=== PATIENT | male | born 1955 | race Two or more races ===

== ENCOUNTER 2023-12-11 02:28 | Emergency (ER) | payer OTHER ==
[~2023-12-11] VITALS: Ht 170.2 cm; Wt 104.5 kg
[2023-12-11 03:15] LABS: Basophils # (auto) 0.2 10 ^3/uL (0-0.2); Basophils % (auto) 1.4 % (0.0-2.0); Eosinophils # (auto) 0.1 10 ^3/uL (0-0.8); Eosinophils % (auto) 1.1 % (0.0-7.0); Hematocrit 41.2 % (41.0-53.0); Hemoglobin 13.3 g/dL (13.5-17.5); Lymphocytes # (auto) 2.3 10 ^3/uL (0.4-5.4); Lymphocytes % (auto) 21.4 % (10.0-50.0); Mean Corpuscular Hemoglobin 29.1 pg (28.0-32.0); Mean Corpuscular Hgb Conc. 32.2 g/dL (32.0-36.0); Mean Corpuscular Volume 90.4 fL (80.0-100.0); Monocytes # (auto) 0.8 10 ^3/uL (0-1.3); Monocytes % (auto) 6.9 % (0.0-12.0); Neutrophils # (auto) 7.6 10 ^3/uL (1.6-8.6); Neutrophils % (auto) 69.2 % (37.0-80.0); Nucleated Red Blood Cells % 0.1 %; Red Blood Cells 4.56 10^6/uL (4.5-5.90); Red Cell Distribution Width 15.2 % (11.8-14.3); White Blood Cell 10.9 10^3/uL (4.4-10.8)
[2023-12-11 03:33] LABS: Alanine Aminotransferase 30 U/L (7-40); Albumin 4.3 g/dL (3.2-4.8); Alkaline Phosphatase 65 U/L (46-116); Anion Gap 10 (5-15); Aspartate Aminotransferase 21 U/L (13-40); BUN/Creatinine Ratio 12.4 (10.0-20.0); Bilirubin, Total 0.6 mg/dL (0.2-1.0); Blood Urea Nitrogen 14 mg/dL (9-23); Calcium 9.6 mg/dL (8.7-10.4); Carbon Dioxide 21 mmol/L (20-30); Chloride 108 mmol/L (98-107); Glucose 134 mg/dL (74-106); Potassium 3.4 mmol/L (3.5-5.1); Sodium 139 mmol/L (136-145); Total Protein 6.8 g/dL (5.7-8.2)
[2023-12-11] MEDS ORDERED: ESMOLOL HCL-NS 10MG/ML 250 ML IV SCH (04:15)
[2023-12-11] MEDS ORDERED: ESMOLOL HCL (10MG/ML) 10 ML VIAL IV ONE (04:15)
[2023-12-11] MEDS: IOHEXOL 350 MG/ML 100ML IJ ONE (04:23)
[2023-12-11] MEDS: ONDANSETRON HCL 4 MG/2 ML VIAL IV ONE (04:32)
[2023-12-11] MEDS: HYDROmorphone HCL 2 MG/ML VL/or syr IV ONE (04:34)
[2023-12-11 04:35] VITALS: PULSE 63; RESP 14; O2SAT 98
[2023-12-11] MEDS: LABETALOL HCL 5 MG/ML 4ML SYRINGE IV ONE (04:43)
[2023-12-11 06:40] VITALS: BP 127/54; PULSE 70; RESP 16; TEMP 97.5; O2SAT 95
== END 2023-12-11 06:56 | disposition short-term general hospital (02) ==
LOC: EDBD 02:28 → ER 02:28
DX: I71.03 Dissection of thoracoabdominal aorta (principal); R07.89 Other chest pain; I12.9 Hypertensive chronic kidney disease with stage 1 through stage 4 chronic kidney disease, or unspecified chronic kidney disease; N18.9 Chronic kidney disease, unspecified; Z88.6 Allergy status to analgesic agent
CPT/HCPCS: 36415; 71045; 71260; 74177; 80053; 83880; 84484; 85025; 93005; 96365; 96375; 99285; J1170; J2405; J3490; Q9967